=== PATIENT | male | born 1950 | race African-American/Black ===

== ENCOUNTER 2018-04-10 17:46 | Inpatient (IN) ==
[2018-04-10] MEDS ORDERED: SODIUM CHLORIDE 0.9% 1,000 ML IV STA ×2 (18:16→22:03)
[2018-04-10] MEDS ORDERED: CALCIUM GLUCONATE 2,000 MG in SODIUM CHLORIDE 0.9% 100 ML IV ONE (18:17)
[2018-04-10] MEDS ORDERED: DEXTROSE 50% 25 GM/50 ML VIAL IV STA (18:18)
[2018-04-10] MEDS ORDERED: INSULIN REGULAR 100 UNIT/ML IV STA (18:18)
[2018-04-10] MEDS ORDERED: SODIUM BICARB INJ 150 MEQ in STERILE WATER INJ 850 ML IV SCH (18:30)
[2018-04-10 19:04] LABS: Basophils # 0.1 10*3/uL (0.0-0.2); Basophils % 0.4 % (0.0-0.8); Eosinophils # 0.3 10*3/uL (0.0-0.87); Eosinophils % 2.8 % (0.00-10.9); Hematocrit 34.5 VOL% (42.0-52.0); Hemoglobin 10.8 GM/DL (14.0-18.0); Immature Granulocytes % 0.5 %; Immature Granulocytes Absolute 0.06 #; Lymphocytes # 1.8 10*3/uL (1.4-4.0); Mean Corpuscular HGB Conc 31.3 GM/DL (32-36); Mean Corpuscular Hemoglobin 29 PG (27-34); Mean Platelet Volume 12.2 FL (9.6-12.0); Monocytes # 0.9 10*3/uL (0.11-0.8); Monocytes % 7.3 % (1.7-12.7); Neutrophils # 8.9 10*3/uL (1.4-7.4); Platelet Count 365 T/CUMM (130-400); Red Blood Count 3.67 MC/CUMM (3.8-5.5)
[2018-04-10] MEDS ORDERED: DEXTROSE 50% 25 GM/50 ML VIAL IV ONE (19:13)
[2018-04-10] MEDS ORDERED: CALCIUM GLUCONATE 1,000 MG/10 ML VIAL IV ONE (19:17)
[2018-04-10] MEDS: SODIUM BICARB INJ 150 MEQ in DEXTROSE 5% 850 ML IV SCH (19:22)
[2018-04-10 19:23] LABS: Lactic Acid 1.3 MMOL/L (0.4-2.0)
[2018-04-10 19:32] LABS: Alanine Aminotransferase 538 U/L (16-61); Albumin 2.6 G/DL (3.4-5.0); Alkaline Phosphatase 255 U/L (45-117); Aspartate Amino Transferase 280 U/L (0-37); Bilirubin,Total < 0.39 MG/DL (0.2-1.0); Blood Urea Nitrogen 205 MG/DL (7-18); Calcium 9.8 MG/DL (8.5-10.1); Glucose 130 MG/DL (74-106); Osmolality,Calculated 373.6 MOS/KG (273-304); Sodium 153 MMOL/L (136-145); Total Protein 8.6 G/DL (6.4-8.3)
[2018-04-10 19:40] LABS: Potassium > 8.0 MMOL/L (3.5-5.1)
[2018-04-10] MEDS ORDERED: ALBUTEROL 2.5 MG/3 ML NEB RESP TX PRN (20:02)
[2018-04-10] MEDS ORDERED: ONDANSETRON 4 MG/2 ML VIAL IV PRN (20:02)
[2018-04-10] MEDS ORDERED: SODIUM POLYSTYRENE SULFATE 15 GM/60 ML BOTTLE PO STA (20:05)
[2018-04-10] MEDS ORDERED: LACTATED RINGERS 1,000 ML IV SCH (20:30)
[2018-04-10] MEDS ORDERED: GLUCAGON 1 MG VIAL IM PRN (21:13)
[2018-04-10] MEDS ORDERED: DEXTROSE 50% 25 GM/50 ML VIAL IV PRN (21:13)
[2018-04-10] MEDS: PANTOPRAZOLE 40 MG VIAL IV SCH (21:50)
[2018-04-10] MEDS: THEOPHYLLINE 5.33 MG/ML 30 ML/BOTTLE PEG SCH (22:43)
[2018-04-10] MEDS: ENOXAPARIN 30 MG/0.3 ML SYRINGE SUBCUT SCH (22:44)
[2018-04-10 22:52] LABS: Thyroid Stimulating Hormone 0.665 uIU/ml (0.358-3.74)
[2018-04-10 22:54] LABS: INR 1.2; PT Patient Result 12.1 SECS
[2018-04-10 23:49] LABS: Ammonia 35 UMOL/L (11-32)
[2018-04-10 23:53] LABS: Lactic Acid 2.1 MMOL/L (0.4-2.0)
[2018-04-11 01:38] LABS: Basophils % 0.4 % (0.0-0.8); Eosinophils # 0.3 10*3/uL (0.0-0.87); Eosinophils % 2.9 % (0.00-10.9); Hematocrit 32.4 VOL% (42.0-52.0); Hemoglobin 10.6 GM/DL (14.0-18.0); Immature Granulocytes % 0.4 %; Immature Granulocytes Absolute 0.03 #; Lymphocytes # 1.6 10*3/uL (1.4-4.0); Lymphocytes % 18.9 % (21.2-54.2); Mean Corpuscular HGB Conc 32.7 GM/DL (32-36); Mean Corpuscular Hemoglobin 30 PG (27-34); Mean Corpuscular Volume 91.3 FL (87-102); Mean Platelet Volume 12.5 FL (9.6-12.0); Monocytes # 0.6 10*3/uL (0.11-0.8); Monocytes % 6.6 % (1.7-12.7); Neutrophils % 70.8 % (38.7-73.9); Platelet Count 299 T/CUMM (130-400); Red Blood Count 3.55 MC/CUMM (3.8-5.5); Red Cell Distribution Width 15.9 % (9.3-17.3); White Blood Count 8.5 T/CUMM (4-12)
[2018-04-11] MEDS: hydrALAZINE 20 MG/1 ML VIAL IV PRN (01:45)
[2018-04-11 02:02] LABS: Apearance,Urine Slightly Hazy (Clear); Bilirubin,Urine Negative (Negative); Blood, Urine Small mg/dL (Negative); Glucose,Urine (UA) Negative (Negative); Ketones,Urine Negative (Negative); Nitrite,Urine Negative (Negative); Protein,Urine 30 MG/DL; RBC,Urine 4 /HPF (0-4); Squamous Epithelial Cell,Urine Occasional /HPF (0-10); Urine Color Yellow (Yellow); Urine Specific Gravity 1.012 (1.001-1.035); Urine Urobilinogen < 2.0 EU/DL (0.2-1.0); WBC,Urine 2 /HPF (0-6)
[2018-04-11 02:09] LABS: Hepatitis A Ab IgM Quant 0.14 Index; Hepatitis A Ab IgM Result Negative (Negative); Hepatitis B Core IgM Quant 0.11 Index; Hepatitis B Core IgM Result Negative (Negative); Hepatitis B Surface Ag Quant < 0.10 Index; Hepatitis B Surface Ag Result Negative (Negative); Hepatitis C Virus Ab Quant 0.08 Index; Hepatitis C Virus Ab Result Negative (Negative)
[2018-04-11 02:16] LABS: Alanine Aminotransferase 457 U/L (16-61); Albumin 2.3 G/DL (3.4-5.0); Alkaline Phosphatase 222 U/L (45-117); Aspartate Amino Transferase 204 U/L (0-37); Bilirubin,Total < 0.39 MG/DL (0.2-1.0); Blood Urea Nitrogen 187 MG/DL (7-18); Calcium 9.8 MG/DL (8.5-10.1); Cholesterol 74 MG/DL (50-200); Glucose 175 MG/DL (74-106); HDL Cholesterol 34 MG/DL (40-60); Osmolality,Calculated 374.2 MOS/KG (273-304); Risk Ratio 2.18; Sodium 156 MMOL/L (136-145); Total Protein 7.8 G/DL (6.4-8.3); Triglycerides 73 MG/DL (2-150); VLDL CHOLESTEROL 14.6 MG/DL
[2018-04-11 02:18] LABS: Potassium 6.2 MMOL/L (3.5-5.1)
[2018-04-11] MEDS: LEVOTHYROXINE 75 MCG TABLET PEG SCH (05:45)
[2018-04-11] MEDS: THEOPHYLLINE 5.33 MG/ML 30 ML/BOTTLE PEG SCH ×3 (05:45→21:00)
[2018-04-11] MEDS: SODIUM BICARB INJ 150 MEQ in DEXTROSE 5% 850 ML IV SCH ×3 (06:08→13:10)
[2018-04-11] MEDS: INSULIN LISPRO 100 UNIT/ML SUBCUT SCH ×4 (08:00→23:51)
[2018-04-11] MEDS ORDERED: LIDOCAINE 2% TOP JELLY 20 ML VIAL INTRAURETH ONE ×2 (08:47→08:49)
[2018-04-11] MEDS: ZINC SULFATE 220 MG CAPSULE PEG SCH (10:02)
[2018-04-11] MEDS: ASCORBIC ACID 500 MG TABLET PEG SCH (10:02)
[2018-04-11] MEDS: DONEPEZIL 10 MG TABLET PEG SCH (10:02)
[2018-04-11] MEDS: CHOLECALCIFEROL 1,000 UNIT TABLET PEG SCH (10:02)
[2018-04-11] MEDS: FOLIC ACID 1 MG TABLET PEG SCH (10:02)
[2018-04-11] MEDS: THIAMINE 100 MG TABLET PEG SCH (10:02)
[2018-04-11] MEDS: MULTIVITAMIN LIQUID (CENTRUM) 60 ML BOTTLE PEG SCH (10:05)
[2018-04-11 13:17] LABS: Calcium 9.7 MG/DL (8.5-10.1); Potassium 5.2 MMOL/L (3.5-5.1)
[2018-04-11 15:58] LABS: Calcium 9.7 MG/DL (8.5-10.1); Osmolality,Calculated 368.7 MOS/KG (273-304); Potassium 4.8 MMOL/L (3.5-5.1)
[2018-04-11 19:35] LABS: Calcium 9.6 MG/DL (8.5-10.1); Osmolality,Calculated 366.7 MOS/KG (273-304); Potassium 4.6 MMOL/L (3.5-5.1)
[2018-04-11] MEDS: ENOXAPARIN 30 MG/0.3 ML SYRINGE SUBCUT SCH (20:39)
[2018-04-11] MEDS: PANTOPRAZOLE 40 MG VIAL IV SCH (20:39)
[2018-04-11 23:55] LABS: Calcium 9.7 MG/DL (8.5-10.1); Osmolality,Calculated 369.6 MOS/KG (273-304); Potassium 4.2 MMOL/L (3.5-5.1)
[2018-04-12] MEDS: SODIUM BICARB INJ 150 MEQ in DEXTROSE 5% 850 ML IV SCH ×2 (04:05→09:57)
[2018-04-12] MEDS: INSULIN LISPRO 100 UNIT/ML SUBCUT SCH ×3 (05:41→18:33)
[2018-04-12] MEDS: THEOPHYLLINE 5.33 MG/ML 30 ML/BOTTLE PEG SCH ×3 (05:42→21:29)
[2018-04-12] MEDS: LEVOTHYROXINE 75 MCG TABLET PEG SCH (05:42)
[2018-04-12 06:22] LABS: Basophils % 0.2 % (0.0-0.8); Eosinophils # 0.4 10*3/uL (0.0-0.87); Eosinophils % 3.7 % (0.00-10.9); Hematocrit 32.3 VOL% (42.0-52.0); Hemoglobin 10.2 GM/DL (14.0-18.0); Immature Granulocytes % 0.4 %; Immature Granulocytes Absolute 0.04 #; Lymphocytes # 1.4 10*3/uL (1.4-4.0); Lymphocytes % 14.8 % (21.2-54.2); Mean Corpuscular HGB Conc 31.6 GM/DL (32-36); Mean Corpuscular Hemoglobin 30 PG (27-34); Mean Corpuscular Volume 93.4 FL (87-102); Mean Platelet Volume 12.4 FL (9.6-12.0); Monocytes # 0.6 10*3/uL (0.11-0.8); Monocytes % 6.3 % (1.7-12.7); Neutrophils % 74.6 % (38.7-73.9); Platelet Count 367 T/CUMM (130-400); Red Blood Count 3.46 MC/CUMM (3.8-5.5); Red Cell Distribution Width 15.9 % (9.3-17.3); White Blood Count 9.4 T/CUMM (4-12)
[2018-04-12 06:57] LABS: Alanine Aminotransferase 321 U/L (16-61); Albumin 2.5 G/DL (3.4-5.0); Alkaline Phosphatase 206 U/L (45-117); Aspartate Amino Transferase 84 U/L (0-37); Bilirubin,Direct < 0.100 MG/DL (0.0-0.20); Bilirubin,Indirect 0.3 MG/DL (0.0-1.0); Bilirubin,Total < 0.39 MG/DL (0.2-1.0); Blood Urea Nitrogen 130 MG/DL (7-18); Calcium 9.9 MG/DL (8.5-10.1); Glucose 161 MG/DL (74-106); Osmolality,Calculated 364.3 MOS/KG (273-304); Potassium 3.7 MMOL/L (3.5-5.1); Total Protein 7.9 G/DL (6.4-8.3)
[2018-04-12 06:58] LABS: Prealbumin 24.8 MG/DL (20-40)
[2018-04-12 07:02] LABS: Sodium 162 MMOL/L (136-145)
[2018-04-12] MEDS: ZINC SULFATE 220 MG CAPSULE PEG SCH (08:01)
[2018-04-12] MEDS: CHOLECALCIFEROL 1,000 UNIT TABLET PEG SCH (08:01)
[2018-04-12] MEDS: THIAMINE 100 MG TABLET PEG SCH (08:01)
[2018-04-12] MEDS: FOLIC ACID 1 MG TABLET PEG SCH (08:02)
[2018-04-12] MEDS: ASCORBIC ACID 500 MG TABLET PEG SCH (08:02)
[2018-04-12] MEDS: MULTIVITAMIN LIQUID (CENTRUM) 60 ML BOTTLE PEG SCH (08:02)
[2018-04-12] MEDS: DONEPEZIL 10 MG TABLET PEG SCH (08:02)
[2018-04-12] MEDS: POTASSIUM CHLORIDE 20 MEQ/15 ML UDCUP PER TUBE SCH ×2 (09:56→21:29)
[2018-04-12] MEDS: DEXTROSE 5% 1,000 ML IV SCH ×2 (10:04→21:30)
[2018-04-12 11:23] LABS: Calcium 9.8 MG/DL (8.5-10.1); Osmolality,Calculated 364.3 MOS/KG (273-304); Potassium 4.5 MMOL/L (3.5-5.1)
[2018-04-12] MEDS: hydrALAZINE 20 MG/1 ML VIAL IV PRN (13:11)
[2018-04-12 13:35] LABS: Osmolality,Calculated 361.5 MOS/KG (273-304); Potassium 4.1 MMOL/L (3.5-5.1)
[2018-04-12] MEDS: ENOXAPARIN 30 MG/0.3 ML SYRINGE SUBCUT SCH (21:29)
[2018-04-12] MEDS: PANTOPRAZOLE 40 MG VIAL IV SCH (21:29)
[2018-04-12 21:34] LABS: Calcium 9.7 MG/DL (8.5-10.1); Osmolality,Calculated 355.6 MOS/KG (273-304); Potassium 3.3 MMOL/L (3.5-5.1)
[2018-04-13] MEDS: INSULIN LISPRO 100 UNIT/ML SUBCUT SCH ×4 (00:31→21:34)
[2018-04-13 05:59] LABS: Calcium 9.6 MG/DL (8.5-10.1); Osmolality,Calculated 343.7 MOS/KG (273-304); Potassium 3.3 MMOL/L (3.5-5.1)
[2018-04-13] MEDS: THEOPHYLLINE 5.33 MG/ML 30 ML/BOTTLE PEG SCH ×2 (06:38→13:18)
[2018-04-13] MEDS: DEXTROSE 5% 1,000 ML IV SCH ×2 (06:39→17:09)
[2018-04-13] MEDS: LEVOTHYROXINE 75 MCG TABLET PEG SCH (06:39)
[2018-04-13] MEDS: DONEPEZIL 10 MG TABLET PEG SCH (08:37)
[2018-04-13] MEDS: MULTIVITAMIN LIQUID (CENTRUM) 60 ML BOTTLE PEG SCH (08:37)
[2018-04-13] MEDS: ZINC SULFATE 220 MG CAPSULE PEG SCH (08:37)
[2018-04-13] MEDS: CHOLECALCIFEROL 1,000 UNIT TABLET PEG SCH (08:37)
[2018-04-13] MEDS: THIAMINE 100 MG TABLET PEG SCH (08:37)
[2018-04-13] MEDS: ASCORBIC ACID 500 MG TABLET PEG SCH (08:37)
[2018-04-13] MEDS: FOLIC ACID 1 MG TABLET PEG SCH (08:37)
[2018-04-13] MEDS: POTASSIUM CHLORIDE 20 MEQ/15 ML UDCUP PER TUBE SCH ×2 (08:37→17:09)
[2018-04-13] MEDS: PANTOPRAZOLE 40 MG VIAL IV SCH (21:32)
[2018-04-13] MEDS: ENOXAPARIN 30 MG/0.3 ML SYRINGE SUBCUT SCH (21:33)
[2018-04-14] MEDS: THEOPHYLLINE 5.33 MG/ML 30 ML/BOTTLE PEG SCH ×4 (00:04→22:10)
[2018-04-14] MEDS: POTASSIUM CHLORIDE 20 MEQ/15 ML UDCUP PER TUBE SCH ×3 (00:05→15:36)
[2018-04-14] MEDS: INSULIN LISPRO 100 UNIT/ML SUBCUT SCH ×4 (00:22→17:45)
[2018-04-14] MEDS: hydrALAZINE 20 MG/1 ML VIAL IV PRN (00:27)
[2018-04-14] MEDS: LEVOTHYROXINE 75 MCG TABLET PEG SCH (07:20)
[2018-04-14] MEDS: THIAMINE 100 MG TABLET PEG SCH (08:56)
[2018-04-14] MEDS: DONEPEZIL 10 MG TABLET PEG SCH (08:56)
[2018-04-14] MEDS: CHOLECALCIFEROL 1,000 UNIT TABLET PEG SCH (08:56)
[2018-04-14] MEDS: ZINC SULFATE 220 MG CAPSULE PEG SCH (08:56)
[2018-04-14] MEDS: FOLIC ACID 1 MG TABLET PEG SCH (08:56)
[2018-04-14] MEDS: ASCORBIC ACID 500 MG TABLET PEG SCH (08:56)
[2018-04-14] MEDS: MULTIVITAMIN LIQUID (CENTRUM) 60 ML BOTTLE PEG SCH (10:29)
[2018-04-14 10:52] LABS: Basophils % 0.3 % (0.0-0.8); Eosinophils # 0.5 10*3/uL (0.0-0.87); Eosinophils % 7.9 % (0.00-10.9); Hematocrit 31.1 VOL% (42.0-52.0); Hemoglobin 9.9 GM/DL (14.0-18.0); Immature Granulocytes % 0.3 %; Immature Granulocytes Absolute 0.02 #; Lymphocytes % 17.3 % (21.2-54.2); Mean Corpuscular HGB Conc 31.8 GM/DL (32-36); Mean Corpuscular Hemoglobin 30 PG (27-34); Mean Corpuscular Volume 93.4 FL (87-102); Mean Platelet Volume 12.4 FL (9.6-12.0); Monocytes # 0.6 10*3/uL (0.11-0.8); Monocytes % 9.9 % (1.7-12.7); Neutrophils # 3.8 10*3/uL (1.4-7.4); Neutrophils % 64.3 % (38.7-73.9); Platelet Count 283 T/CUMM (130-400); Red Blood Count 3.33 MC/CUMM (3.8-5.5)
[2018-04-14 11:19] LABS: Calcium 9.3 MG/DL (8.5-10.1); Osmolality,Calculated 317.9 MOS/KG (273-304); Potassium 4.2 MMOL/L (3.5-5.1)
[2018-04-14] MEDS: DEXTROSE 5% 1,000 ML IV SCH (13:21)
[2018-04-14] MEDS: ENOXAPARIN 30 MG/0.3 ML SYRINGE SUBCUT SCH (22:10)
[2018-04-15] MEDS: POTASSIUM CHLORIDE 20 MEQ/15 ML UDCUP PER TUBE SCH ×3 (02:13→16:05)
[2018-04-15] MEDS: PANTOPRAZOLE 40 MG VIAL IV SCH ×2 (02:59→21:04)
[2018-04-15] MEDS: INSULIN LISPRO 100 UNIT/ML SUBCUT SCH ×4 (06:13→23:58)
[2018-04-15] MEDS: DEXTROSE 5% 1,000 ML IV SCH ×4 (06:13→18:58)
[2018-04-15] MEDS: LEVOTHYROXINE 75 MCG TABLET PEG SCH (06:14)
[2018-04-15] MEDS: THEOPHYLLINE 5.33 MG/ML 30 ML/BOTTLE PEG SCH ×3 (06:14→21:05)
[2018-04-15 06:36] LABS: Basophils % 0.2 % (0.0-0.8); Eosinophils # 0.4 10*3/uL (0.0-0.87); Eosinophils % 6.2 % (0.00-10.9); Hematocrit 28.4 VOL% (42.0-52.0); Hemoglobin 9.3 GM/DL (14.0-18.0); Immature Granulocytes % 0.3 %; Immature Granulocytes Absolute 0.02 #; Lymphocytes # 1.3 10*3/uL (1.4-4.0); Lymphocytes % 18.8 % (21.2-54.2); Mean Corpuscular HGB Conc 32.7 GM/DL (32-36); Mean Corpuscular Hemoglobin 29 PG (27-34); Mean Corpuscular Volume 89.9 FL (87-102); Mean Platelet Volume 12.8 FL (9.6-12.0); Monocytes # 0.6 10*3/uL (0.11-0.8); Monocytes % 8.6 % (1.7-12.7); Neutrophils # 4.4 10*3/uL (1.4-7.4); Neutrophils % 65.9 % (38.7-73.9); Platelet Count 278 T/CUMM (130-400); Red Blood Count 3.16 MC/CUMM (3.8-5.5); Red Cell Distribution Width 15.8 % (9.3-17.3); White Blood Count 6.7 T/CUMM (4-12)
[2018-04-15 07:00] LABS: Calcium 9.2 MG/DL (8.5-10.1); Osmolality,Calculated 304.4 MOS/KG (273-304); Potassium 4.6 MMOL/L (3.5-5.1)
[2018-04-15 07:22] LABS: Prealbumin 21.2 MG/DL (20-40)
[2018-04-15] MEDS: DONEPEZIL 10 MG TABLET PEG SCH (08:36)
[2018-04-15] MEDS: ZINC SULFATE 220 MG CAPSULE PEG SCH (08:36)
[2018-04-15] MEDS: THIAMINE 100 MG TABLET PEG SCH (08:38)
[2018-04-15] MEDS: FOLIC ACID 1 MG TABLET PEG SCH (08:38)
[2018-04-15] MEDS: ASCORBIC ACID 500 MG TABLET PEG SCH (08:38)
[2018-04-15] MEDS: CHOLECALCIFEROL 1,000 UNIT TABLET PEG SCH (08:38)
[2018-04-15] MEDS: MULTIVITAMIN LIQUID (CENTRUM) 60 ML BOTTLE PEG SCH (08:42)
[2018-04-15] MEDS: hydrALAZINE 20 MG/1 ML VIAL IV PRN (12:25)
[2018-04-15] MEDS ORDERED: SKIN HEALING OINT (AQUAPHOR) 50 GM TUBE TOP PRN (13:46)
[2018-04-15] MEDS ORDERED: ENOXAPARIN 40 MG/0.4 ML SYRINGE SUBCUT SCH (21:00)
[2018-04-16] MEDS: THEOPHYLLINE 5.33 MG/ML 30 ML/BOTTLE PEG SCH ×2 (05:28→12:54)
[2018-04-16] MEDS: LEVOTHYROXINE 75 MCG TABLET PEG SCH (05:28)
[2018-04-16] MEDS: INSULIN LISPRO 100 UNIT/ML SUBCUT SCH ×2 (06:20→12:24)
[2018-04-16 06:32] LABS: Basophils % 0.2 % (0.0-0.8); Eosinophils # 0.3 10*3/uL (0.0-0.87); Eosinophils % 5.2 % (0.00-10.9); Hematocrit 27.6 VOL% (42.0-52.0); Immature Granulocytes % 0.6 %; Immature Granulocytes Absolute 0.04 #; Lymphocytes # 1.2 10*3/uL (1.4-4.0); Lymphocytes % 17.4 % (21.2-54.2); Mean Corpuscular HGB Conc 32.6 GM/DL (32-36); Mean Corpuscular Hemoglobin 29 PG (27-34); Mean Corpuscular Volume 89.9 FL (87-102); Mean Platelet Volume 12.8 FL (9.6-12.0); Monocytes # 0.7 10*3/uL (0.11-0.8); Neutrophils # 4.4 10*3/uL (1.4-7.4); Neutrophils % 66.6 % (38.7-73.9); Platelet Count 264 T/CUMM (130-400); Red Blood Count 3.07 MC/CUMM (3.8-5.5); Red Cell Distribution Width 15.6 % (9.3-17.3); White Blood Count 6.6 T/CUMM (4-12)
[2018-04-16 06:48] LABS: Calcium 9.3 MG/DL (8.5-10.1); Potassium 4.2 MMOL/L (3.5-5.1)
[2018-04-16] MEDS ORDERED: POTASSIUM CHLORIDE 20 MEQ/15 ML UDCUP PER TUBE SCH (09:00)
[2018-04-16] MEDS: DEXTROSE 5% 1,000 ML IV SCH (09:18)
[2018-04-16] MEDS: MULTIVITAMIN LIQUID (CENTRUM) 60 ML BOTTLE PEG SCH (10:05)
[2018-04-16] MEDS: ASCORBIC ACID 500 MG TABLET PEG SCH (10:05)
[2018-04-16] MEDS: DONEPEZIL 10 MG TABLET PEG SCH (10:05)
[2018-04-16] MEDS: FOLIC ACID 1 MG TABLET PEG SCH (10:05)
[2018-04-16] MEDS: THIAMINE 100 MG TABLET PEG SCH (10:05)
[2018-04-16] MEDS: ZINC SULFATE 220 MG CAPSULE PEG SCH (10:06)
[2018-04-16] MEDS: CHOLECALCIFEROL 1,000 UNIT TABLET PEG SCH (10:06)
[2018-04-16 12:19] VITALS: BP 150/84
== END 2018-04-16 14:58 | DRG 682 ==
LOC: EDBD → N.ED 17:46 → SUATTDRO 20:01 → N.EDINP 20:01 → N.ICU 23:03 → N.2E 04-13 17:27
PROVIDERS: ADMIT Internal Medicine; ATTEND Internal Medicine Infectious Disease